=== PATIENT | female | born 1955 | race Caucasian/White ===

== ENCOUNTER 2016-09-05 10:23 | Outpatient (RCR) | payer BC ==
[~2016-09-05 10:23] MED LIST: CALC-140 PO; EMOL45EM TP; FURO20TA4 PO; INSU100I14 SQ; INSU100V32 SC; KCL10CCR PO; LVT.05T PO; MULT-954 PO; NFLOSA25TA PO; OXYC1TAB87 PO; ROSU10TA PO; SITA100T PO; WARF4TAB3 PO; WRF5T PO
[2016-09-22 08:15] LABS: MEAN CORPUSCULAR HEMOGLOBIN 29.3 PG (26.0-34.0); MEAN CORPUSCULAR HGB CONC 32.8 g/dL (31.0-37.0); MEAN PLATELET VOLUME 10.5 FL (6.0-9.5); WHITE BLOOD COUNT 10.64 10^3uL (4.0-11.0)
[2016-09-22 08:52] LABS: ALBUMIN 3.8 g/dL (3.4-5.0); ANION GAP 15.8 MEQ/L (3-15); CALCULATED IONIZED CALCIUM 4.1 mg/dL (3.8-4.6); TOTAL PROTEIN 7.1 g/dL (6.4-8.5)
== END 2016-12-04 | disposition home or self-care (01) ==
LOC: LAB 10:23
PROVIDERS: ATTEND Family Medicine
DX: Z51.81 Encounter for therapeutic drug level monitoring (principal); Z79.01 Long term (current) use of anticoagulants; E11.9 Type 2 diabetes mellitus without complications; Z11.59 Encounter for screening for other viral diseases; I10 Essential (primary) hypertension; E03.9 Hypothyroidism, unspecified
CPT/HCPCS: 36415; 80053; 80061; 82043; 83036; 84439; 84443; 85027; 85610; 86803

== ENCOUNTER 2016-12-12 08:07 | Outpatient (RCR) | payer BC | END 2017-02-08 19:22 | disposition home or self-care (01) | LOC: LAB 08:07 | PROVIDERS: ATTEND Family Medicine | DX: Z51.81 Encounter for therapeutic drug level monitoring (principal); Z79.01 Long term (current) use of anticoagulants | CPT/HCPCS: 36415; 85610 ==

== ENCOUNTER → 2016-12-21 | Outpatient (CLI) | payer BC ==
[2016-12-21 08:42] LABS: MEAN CORPUSCULAR HEMOGLOBIN 29.2 PG (26.0-34.0); MEAN CORPUSCULAR HGB CONC 32.4 g/dL (31.0-37.0); MEAN PLATELET VOLUME 10.3 FL (6.0-9.5); WHITE BLOOD COUNT 8.04 10^3uL (4.0-11.0)
[2016-12-21 09:21] LABS: ALBUMIN 3.9 g/dL (3.4-5.0); ANION GAP 12.9 MEQ/L (3-15); CALCULATED IONIZED CALCIUM 3.8 mg/dL (3.8-4.6); TOTAL PROTEIN 7.6 g/dL (6.4-8.5)
== END ==
LOC: LAB 07:52
PROVIDERS: ATTEND Family Medicine
DX: I10 Essential (primary) hypertension (principal); E11.9 Type 2 diabetes mellitus without complications; Z11.59 Encounter for screening for other viral diseases
CPT/HCPCS: 36415; 80053; 80061; 82043; 83036; 85027; 86803